=== PATIENT | female | born 1985 | race Caucasian/White ===

== ENCOUNTER 2019-06-17 09:48 | Outpatient (CLI) | payer OTHER ==
[~2019-06-17] VITALS: Ht 182.9 cm; Wt 107.7 kg
[~2019-06-17 09:48] MED LIST: DOCU-131 PO; IBUP-1222 PO; LABE100T6 PO; OXYC-302 PO; PREN1TAB60 PO
[2019-06-17 10:02] VITALS: BP 134/70
[2019-06-17] MEDS ORDERED: BETAMETHASONE 6 MG/ML, 5ML IM ONE (10:07)
[2019-06-17] MEDS ORDERED: BETAMETHASONE 6 MG/ML, 5ML IM SCH (10:30)
[2019-06-18] MEDS ORDERED: ASPI-496 PO (10:33)
== END 2019-06-17 10:49 | disposition home or self-care (01) ==
LOC: LDOP 09:48
PROVIDERS: ATTEND Obstetrics & Gynecology
DX: O09.93 Supervision of high risk pregnancy, unspecified, third trimester (principal); O09.523 Supervision of elderly multigravida, third trimester; Z3A.31 31 weeks gestation of pregnancy
CPT/HCPCS: 59025; 96372; 99201; J0702; G0463

== ENCOUNTER 2019-06-18 09:50 | Outpatient (CLI) | payer OTHER ==
[2019-06-18] MEDS ORDERED: BETAMETHASONE 6 MG/ML, 5ML IM ONE (10:00)
[2019-06-18] MEDS ORDERED: DIPH,PERTUSS(ACELL),TET VAC/PF NC IM-VACC ONE ×3 (10:14→10:30)
[2019-06-18] MEDS ORDERED: ASPI-496 PO (10:33)
[2019-06-18] MEDS ORDERED: PLEASE ENTER HEIGHT AND WEIGHT MC SCH (11:00)
== END 2019-06-18 10:25 | disposition home or self-care (01) ==
LOC: LDOP 09:50
PROVIDERS: ATTEND Obstetrics & Gynecology
DX: O26.892 Other specified pregnancy related conditions, second trimester (principal); O09.513 Supervision of elderly primigravida, third trimester; R10.9 Unspecified abdominal pain; Z3A.31 31 weeks gestation of pregnancy
CPT/HCPCS: 90715; 96372; J0702

== ENCOUNTER 2019-06-29 12:35 | Outpatient (CLI) | payer OTHER ==
[~2019-06-29 12:35] MED LIST changes: +ASPI-496 PO
== END 2019-06-29 14:38 | disposition home or self-care (01) ==
LOC: LDOP 12:35
PROVIDERS: ATTEND Obstetrics & Gynecology
DX: O09.523 Supervision of elderly multigravida, third trimester (principal); O13.3 Gestational [pregnancy-induced] hypertension without significant proteinuria, third trimester; Z3A.33 33 weeks gestation of pregnancy
CPT/HCPCS: 36415; 59025; 80053; 81001; 82570; 84156; 84550; 85025; 99211; G0463

== ENCOUNTER 2019-07-04 10:49 | Outpatient (CLI) | payer OTHER ==
[~2019-07-04] VITALS: Ht 182.9 cm; Wt 105.5 kg
[2019-07-04 11:16] LABS: BASOPHILS # (AUTO) 0.08 x10^3/uL (0-0.1); BASOPHILS % (AUTO) 1 % (0-1); EOSINOPHILS # (AUTO) 0.06 x10^3/uL (0-0.4); EOSINOPHILS % (AUTO) 1 % (1-7); LYMPHOCYTES # (AUTO) 2.63 x10^3/uL (1-3.4); LYMPHOCYTES % (AUTO) 22 % (22-44); MD NO; MEAN CORPUSCULAR HEMOGLOBIN 31.7 pg (27.0-34.8); MEAN CORPUSCULAR HGB CONC 33.9 g/dL (32.4-35.8); MEAN CORPUSCULAR VOLUME 93.5 fL (80-100); MEAN PLATELET VOLUME 11.4 fL (7.4-10.4); MONOCYTES # (AUTO) 0.76 x10^3/uL (0.2-0.8); MONOCYTES % (AUTO) 6 % (2-9); NEUTROPHILS % (AUTO) 71 % (42-75); PLATELET COUNT 211 x10^3/uL (130-400)
[2019-07-04 11:24] LABS: ALANINE AMINOTRANSFERASE 46 U/L (12-78); ALBUMIN 2.5 g/dL (3.4-5.0); ANION GAP 9 mmol/L (5-15); BILIRUBIN, DIRECT < 0.1 mg/dL (0.1-0.2); CALCIUM 8.2 mg/dL (8.5-10.1); CHLORIDE 110 mmol/L (98-107); CREATININE 0.45 mg/dL (0.55-1.02)
[2019-07-04 11:27] LABS: ALKALINE PHOSPHATASE 205 U/L (45-117); BILIRUBIN,TOTAL 0.4 mg/dL (0.2-1.0); TOTAL PROTEIN 6.8 g/dL (6.4-8.2)
[2019-07-04 11:41] LABS: CREATININE,URINE RANDOM 50.1 mg/dL
[2019-07-04 11:47] LABS: MICROSCOPIC INDICATED
== END 2019-07-04 12:25 | disposition home or self-care (01) ==
LOC: LDOP 10:49
PROVIDERS: ATTEND Obstetrics & Gynecology
DX: O13.3 Gestational [pregnancy-induced] hypertension without significant proteinuria, third trimester (principal); Z3A.33 33 weeks gestation of pregnancy
CPT/HCPCS: 36415; 59025; 80053; 81001; 82248; 82570; 84156; 84550; 85025; 99201; G0463

== ENCOUNTER 2019-07-06 12:49 | Inpatient (IN) | payer OTHER ==
[~2019-07-06] VITALS: Ht 182.9 cm; Wt 105.5 kg
[2019-07-06] MEDS ORDERED: MAGNESIUM SULF. PMX 20GM/500ML 500 ML IV SCH (12:58)
[2019-07-06] MEDS ORDERED: CALCIUM CARBONATE 500 MG TAB.CHEW PO PRN (13:00)
[2019-07-06] MEDS ORDERED: BETAMETHASONE 6 MG/ML, 5ML IM ONE ×2 (13:24→13:30)
[2019-07-06] MEDS ORDERED: PLEASE ENTER HEIGHT AND WEIGHT MC SCH (13:30)
[2019-07-06 13:37] LABS: BASOPHILS # (AUTO) 0.04 x10^3/uL (0-0.1); BASOPHILS % (AUTO) 0 % (0-1); EOSINOPHILS # (AUTO) 0.05 x10^3/uL (0-0.4); EOSINOPHILS % (AUTO) 0 % (1-7); LYMPHOCYTES # (AUTO) 2.31 x10^3/uL (1-3.4); LYMPHOCYTES % (AUTO) 18 % (22-44); MD NO; MEAN CORPUSCULAR HEMOGLOBIN 32.1 pg (27.0-34.8); MEAN CORPUSCULAR HGB CONC 33.8 g/dL (32.4-35.8); MEAN CORPUSCULAR VOLUME 94.8 fL (80-100); MONOCYTES # (AUTO) 0.44 x10^3/uL (0.2-0.8); MONOCYTES % (AUTO) 4 % (2-9); NEUTROPHILS # (AUTO) 9.69 x10^3/uL (1.8-6.8); NEUTROPHILS % (AUTO) 77 % (42-75); PLATELET COUNT 205 x10^3/uL (130-400); RED BLOOD COUNT 4.21 x10^6/uL (3.82-5.3); RED CELL DISTRIBUTION WIDTH 13.3 % (9.6-15.2)
[2019-07-06 13:56] LABS: ALANINE AMINOTRANSFERASE 38 U/L (12-78); ALBUMIN 2.5 g/dL (3.4-5.0); ANION GAP 13 mmol/L (5-15); CALCIUM 8.3 mg/dL (8.5-10.1); CHLORIDE 107 mmol/L (98-107); CREATININE 0.71 mg/dL (0.55-1.02)
[2019-07-06 13:59] LABS: ALKALINE PHOSPHATASE 203 U/L (45-117); BILIRUBIN,TOTAL 0.4 mg/dL (0.2-1.0); TOTAL PROTEIN 6.8 g/dL (6.4-8.2)
[2019-07-06 15:35] LABS: MICROSCOPIC INDICATED
[2019-07-06 15:44] LABS: CULTURE INDICATED? YES
[2019-07-06] MEDS ORDERED: LABETALOL 100 MG TABLET ONE (18:58)
[2019-07-06] MEDS: LABETALOL 100 MG TABLET PO SCH (19:00)
[2019-07-07] MEDS ORDERED: LACTATED RINGERS 1,000 ML IV ONE (04:00)
[2019-07-07] MEDS ORDERED: LABETALOL 100 MG TABLET ONE ×2 (06:40→17:37)
[2019-07-07] MEDS: LABETALOL 100 MG TABLET PO SCH ×2 (06:44→17:40)
[2019-07-07] MEDS: ASPIRIN 81 MG TABLET CHEW PO SCH (09:00)
[2019-07-07] MEDS: PRENATAL VIT/IRON/FA 1 EACH TABLET PO SCH (09:00)
[2019-07-07] MEDS: DOCUSATE 100 MG CAPSULE PO SCH ×2 (09:00→21:00)
[2019-07-07] MEDS ORDERED: BETAMETHASONE 6 MG/ML, 5ML IM ONE (14:00)
[2019-07-07] MEDS ORDERED: DIPHENHYDRAMINE 25 MG CAPSULE PO PRN (16:00)
[2019-07-08] MEDS ORDERED: LABETALOL 100 MG TABLET ONE (05:45)
[2019-07-08] MEDS: LABETALOL 100 MG TABLET PO SCH ×2 (05:48→17:47)
[2019-07-08] MEDS ORDERED: LACTATED RINGERS 1,000 ML IVBOLUS ONE (08:00)
[2019-07-08] MEDS ORDERED: METOCLOPRAMIDE 5 MG/ML, 2ML IV ONE (08:00)
[2019-07-08] MEDS ORDERED: SODIUM CITRATE/CITRIC ACID 30 ML UDC PO ONE (08:00)
[2019-07-08] MEDS ORDERED: NEWBORN KIT ONE (08:04)
[2019-07-08 08:18] LABS: BASOPHILS # (AUTO) 0.04 x10^3/uL (0-0.1); BASOPHILS % (AUTO) 0 % (0-1); EOSINOPHILS # (AUTO) 0.01 x10^3/uL (0-0.4); EOSINOPHILS % (AUTO) 0 % (1-7); LYMPHOCYTES # (AUTO) 2.28 x10^3/uL (1-3.4); LYMPHOCYTES % (AUTO) 18 % (22-44); MD NO; MEAN CORPUSCULAR HEMOGLOBIN 31.9 pg (27.0-34.8); MEAN CORPUSCULAR HGB CONC 33.8 g/dL (32.4-35.8); MEAN CORPUSCULAR VOLUME 94.3 fL (80-100); MEAN PLATELET VOLUME 10.7 fL (7.4-10.4); MONOCYTES # (AUTO) 0.75 x10^3/uL (0.2-0.8); MONOCYTES % (AUTO) 6 % (2-9); NEUTROPHILS # (AUTO) 9.85 x10^3/uL (1.8-6.8); NEUTROPHILS % (AUTO) 76 % (42-75); PLATELET COUNT 189 x10^3/uL (130-400); RED BLOOD COUNT 3.86 x10^6/uL (3.82-5.3); RED CELL DISTRIBUTION WIDTH 13.3 % (9.6-15.2)
[2019-07-08] MEDS: PRENATAL VIT/IRON/FA 1 EACH TABLET PO SCH (09:00)
[2019-07-08] MEDS: ASPIRIN 81 MG TABLET CHEW PO SCH (09:00)
[2019-07-08] MEDS: DOCUSATE 100 MG CAPSULE PO SCH ×2 (09:00→21:03)
[2019-07-08] MEDS ORDERED: SODIUM CITRATE/CITRIC ACID 30 ML UDC ONE (09:05)
[2019-07-08] MEDS ORDERED: METOCLOPRAMIDE 5 MG/ML, 2ML ONE (09:05)
[2019-07-08] MEDS ORDERED: FENTANYL PF 100 MCG/2ML ONE (13:02)
[2019-07-08] MEDS ORDERED: OXYTOCIN 10 UNITS/ML, 1ML ONE (13:02)
[2019-07-08] MEDS ORDERED: CEFAZOLIN 1,000 MG ONE (13:02)
[2019-07-08] MEDS ORDERED: ONDANSETRON 2MG/ML, 2ML ONE (13:02)
[2019-07-08] MEDS ORDERED: HYDROmorphone 2 MG/ML, 1ML ONE (13:02)
[2019-07-08] MEDS ORDERED: OXYTOCIN 30U/ 0.9% NaCL 500ML 500 ML ONE (13:43)
[2019-07-08] MEDS: LACTATED RINGERS 1,000 ML IV SCH ×4 (13:52→23:52)
[2019-07-08] MEDS ORDERED: ACETAMINOPHEN 325 MG TABLET PO PRN ×2 (14:00)
[2019-07-08] MEDS ORDERED: METOCLOPRAMIDE 5 MG/ML, 2ML IV PRN (14:00)
[2019-07-08] MEDS ORDERED: ONDANSETRON 2MG/ML, 2ML IV PRN (14:00)
[2019-07-08] MEDS ORDERED: DOCUSATE 100 MG CAPSULE PO PRN (14:00)
[2019-07-08] MEDS ORDERED: CARBOPROST TROMETHAMINE 250 MCG/ML, 1ML IM PRN (14:00)
[2019-07-08] MEDS ORDERED: MORPHINE SULFATE 4 MG/ML, 1ML IVPush PRN (14:00)
[2019-07-08] MEDS ORDERED: morphine SULFATE 10 MG/ML, 1ML IVPush PRN (14:00)
[2019-07-08] MEDS ORDERED: MISOPROSTOL 200 MCG TABLET PR PRN (14:00)
[2019-07-08] MEDS ORDERED: OXYcodone IR 5MG TABLET PO PRN (14:00)
[2019-07-08] MEDS ORDERED: EPHEDRINE 50 MG/ML, 1ML ONE (15:15)
[2019-07-08] MEDS: OXYTOCIN 30U/ 0.9% NaCL 500ML 500 ML IV SCH ×2 (16:25→23:52)
[2019-07-08] MEDS ORDERED: KETOROLAC 30 MG/1 ML ONE (16:31)
[2019-07-08] MEDS: KETOROLAC 30 MG/1 ML IV SCH ×2 (16:32→22:39)
[2019-07-08] MEDS ORDERED: OXYcodone 5 MG/5 ML ORAL.SOL UDC ONE (16:37)
[2019-07-08] MEDS ORDERED: OXYcodone 5 MG/5 ML ORAL.SOL UDC PO PRN (17:00)
[2019-07-08 17:55] VITALS: BP 122/77
[2019-07-08 19:10] VITALS: BP 124/84
[2019-07-08] MEDS: OXYcodone/APAP 5/325MG TABLET PO PRN (21:03)
[2019-07-09 00:15] VITALS: BP 117/77
[2019-07-09] MEDS: OXYcodone/APAP 5/325MG TABLET PO PRN ×4 (01:10→20:48)
[2019-07-09 04:15] VITALS: BP 103/79
[2019-07-09] MEDS: KETOROLAC 30 MG/1 ML IV SCH ×3 (04:20→18:00)
[2019-07-09] MEDS: LACTATED RINGERS 1,000 ML IV SCH (05:52)
[2019-07-09 06:15] VITALS: BP 129/88
[2019-07-09] MEDS: LABETALOL 100 MG TABLET PO SCH ×2 (06:15→18:11)
[2019-07-09 06:29] LABS: BASOPHILS # (AUTO) 0.03 x10^3/uL (0-0.1); BASOPHILS % (AUTO) 0 % (0-1); EOSINOPHILS # (AUTO) 0.03 x10^3/uL (0-0.4); EOSINOPHILS % (AUTO) 0 % (1-7); LYMPHOCYTES # (AUTO) 1.97 x10^3/uL (1-3.4); LYMPHOCYTES % (AUTO) 20 % (22-44); MD NO; MEAN CORPUSCULAR HEMOGLOBIN 31.9 pg (27.0-34.8); MEAN CORPUSCULAR HGB CONC 33.2 g/dL (32.4-35.8); MEAN CORPUSCULAR VOLUME 95.9 fL (80-100); MEAN PLATELET VOLUME 10.8 fL (7.4-10.4); MONOCYTES # (AUTO) 0.72 x10^3/uL (0.2-0.8); MONOCYTES % (AUTO) 7 % (2-9); NEUTROPHILS % (AUTO) 72 % (42-75); PLATELET COUNT 135 x10^3/uL (130-400); RED CELL DISTRIBUTION WIDTH 13.1 % (9.6-15.2)
[2019-07-09] MEDS: DOCUSATE 100 MG CAPSULE PO SCH ×2 (07:00→20:49)
[2019-07-09] MEDS: PRENATAL VIT/IRON/FA 1 EACH TABLET PO SCH (07:00)
[2019-07-09 07:30] VITALS: BP 111/73
[2019-07-09] MEDS ORDERED: PRENATAL VIT/IRON/FA 1 EACH TABLET PO SCH (09:00)
[2019-07-09 12:30] VITALS: BP 107/70
[2019-07-09] MEDS ORDERED: OXYcodone/APAP 5/325MG TABLET PO PRN (12:30)
[2019-07-09] MEDS ORDERED: IBUPROFEN 600 MG TABLET ONE (18:21)
[2019-07-09 19:45] VITALS: BP 115/74
[2019-07-09] MEDS: SIMETHICONE 80 MG CHEW TAB PO PRN (20:49)
[2019-07-10] MEDS ORDERED: IBUPROFEN 600 MG TABLET ONE (00:21)
[2019-07-10] MEDS: IBUPROFEN 600 MG TABLET PO PRN ×3 (00:25→15:55)
[2019-07-10] MEDS: OXYcodone/APAP 5/325MG TABLET PO PRN ×5 (00:25→20:59)
[2019-07-10 04:00] VITALS: BP 116/76
[2019-07-10] MEDS: SIMETHICONE 80 MG CHEW TAB PO PRN (04:34)
[2019-07-10] MEDS: KETOROLAC 30 MG/1 ML IV SCH ×2 (06:00)
[2019-07-10 06:15] VITALS: BP 122/82
[2019-07-10] MEDS: LABETALOL 100 MG TABLET PO SCH ×2 (06:22→18:00)
[2019-07-10] MEDS: DOCUSATE 100 MG CAPSULE PO SCH ×2 (08:59→20:59)
[2019-07-10] MEDS: PRENATAL VIT/IRON/FA 1 EACH TABLET PO SCH (09:00)
[2019-07-10 12:00] VITALS: BP 124/86
[2019-07-10] MEDS ORDERED: IBUPROFEN 600 MG TABLET PO PRN (14:00)
[2019-07-10 16:30] VITALS: BP 120/78
[2019-07-10 18:50] VITALS: BP 133/78
[2019-07-11 00:59] VITALS: BP 126/80
[2019-07-11] MEDS: IBUPROFEN 600 MG TABLET PO PRN ×2 (03:17→21:52)
[2019-07-11] MEDS: OXYcodone/APAP 5/325MG TABLET PO PRN ×2 (03:18→07:19)
[2019-07-11 05:50] VITALS: BP 124/81
[2019-07-11] MEDS: LABETALOL 100 MG TABLET PO SCH ×2 (05:56→17:45)
[2019-07-11 07:10] VITALS: BP 134/76
[2019-07-11] MEDS: PRENATAL VIT/IRON/FA 1 EACH TABLET PO SCH (11:21)
[2019-07-11] MEDS: DOCUSATE 100 MG CAPSULE PO SCH ×2 (11:21→21:52)
[2019-07-11 11:35] VITALS: BP 143/87
[2019-07-11 16:00] VITALS: BP 147/89
[2019-07-11 21:50] VITALS: BP 135/86
[2019-07-12 02:30] VITALS: BP 102/63
[2019-07-12 05:50] VITALS: BP 132/87
[2019-07-12] MEDS: IBUPROFEN 600 MG TABLET PO PRN (05:50)
[2019-07-12] MEDS: LABETALOL 100 MG TABLET PO SCH (05:51)
[2019-07-12 08:20] VITALS: BP 122/80
== END 2019-07-12 12:30 | disposition home or self-care (01) | DRG 787 ==
LOC: LDIP 12:49 → OBSVTOIN 12:49 → INTOOBSV 12:49 → 2NW 07-08 17:15
PROVIDERS: ADMIT Obstetrics & Gynecology; ATTEND Obstetrics & Gynecology
PROC: 10D00Z1 Extraction of Products of Conception, Low, Open Approach (ICD-10-PCS; principal; 2019-07-08)
DX: O36.5931 Maternal care for other known or suspected poor fetal growth, third trimester, fetus 1 (principal); O10.92 Unspecified pre-existing hypertension complicating childbirth; O32.8XX1 Maternal care for other malpresentation of fetus, fetus 1; O32.8XX2 Maternal care for other malpresentation of fetus, fetus 2; O34.211 Maternal care for low transverse scar from previous cesarean delivery; O30.033 Twin pregnancy, monochorionic/diamniotic, third trimester; Z37.2 Twins, both liveborn; Z3A.34 34 weeks gestation of pregnancy
CPT/HCPCS: 36415; 80053; 81001; 82570; 82803; 84156; 84550; 85025; 86592; 86850; 86900; 86923; 87081; 87086; 88307; G0378; J0690; J0702; J1170; J1885; J2405; J3010; J2590; J2765; J7120